=== PATIENT | female | born 1950 | race Caucasian/White ===

== ENCOUNTER 2016-12-24 15:35 | Emergency (ER) | payer OTHER ==
[2016-12-24 15:50] VITALS: TEMP 97.9
--- NOTE | 2016-12-24 16:36 | CPEKG ---
Heart Rate: 87 RR Interval: 690 P-R Interval: 176 QRSD Interval: 90 QT Interval: 376 QTC Interval: 453 P [place]: 46 QRS [place]: -6 T Wave [place]: 41 EKG Severity - NORMAL ECG - EKG Impression: SINUS RHYTHM Electronically Signed By: Josh Philip 24-Dec-2016 22:45:09
[2016-12-24] MEDS ORDERED: NS 1,000 ML IV ONE ×2 (16:44→16:46)
--- NOTE | 2016-12-24 16:46 | EDPHY ---
H & P Stated Complaint: Had episode of vertigo/nausea this morning;resolved now;feels weird HPI/ROS: HPI CHIEF COMPLAINT: Confusion, cognitive fog, lightheadedness HISTORY OF PRESENT ILLNESS: the patient very pleasant 66-year-old female she denies having any significant medical history does not take any daily medications, she presents emergency room stating since 10:00 a.m. she has been in a cognitive fog, states she had some confusion earlier and felt very lightheaded if she was going to pass out. She denies headache, neck pain, chest pain, shortness of breath. Denies dizziness, denies numbness or tingling or focal weakness anywhere. She tells me around 10:00 a.m. she started feeling very lightheaded and feeling as if she was going to pass out she states she was somewhat confused. All her symptoms have since resolved. She has been resting comfortably here in the emergency room at this time she has no complaints. Past Medical History: Denies any medical history Past Surgical History: denies recent surgical history Social History: denies daily use of drugs alcohol tobacco products Family History: noncontributory ROS REVIEW OF SYSTEMS: A comprehensive 10 point review of systems is otherwise negative aside from elements mentioned in the history of present illness. Exam Constitutional appears well nontoxic, triage nursing summary reviewed, vital signs reviewed, awake/alert. Eyes normal conjunctivae and sclera, EOMI, PERRLA. HENT normal inspection, atraumatic, moist mucus membranes, no epistaxis, neck supple/ no meningismus, no raccoon eyes. Respiratory clear to auscultation bilaterally, normal breath sounds, no respiratory distress, no wheezing. Cardiovascular rate normal, regular rhythm, no murmur, no edema, distal pulses normal. Gastrointestinal soft, non-tender, no rebound, no guarding, normal bowel sounds, no distension, no pulsatile mass. Genitourinary no CVA tenderness. Musculoskeletal no midline vertebral tenderness, full range of motion, no calf swelling, no tenderness of extremities, no meningismus, good pulses, neurovascularly intact. Skin pink, warm, & dry, no rash, skin atraumatic. Neurologic normal neurological exam. awake, alert and oriented x 3, AAOx3, moves all 4 extremities equally, motor intact, sensory intact, CN II-XII intact , normal cerebellar, normal vision, normal speech. Psychiatric normal mood/affect. Heme/Lymph/Immune no lymphadenopathy. 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 Re-evaluation: EKG interpretation by me on record in [employer] system. Impression Time of EKG 1634: sinus rhythm rate of 87, appears to be subtle ST depression lead V2 V3 V4 V5, otherwise no ST elevation. EKG interpretation by me on record in [employer] system. Impression Time of EKG 1707, sinus rhythm rate of 81. do not appreciate acute ischemic change. Very subtle ST depression V4 V5 V6. Otherwise unremarkable EKG. CT scan of the Head without IV contrast The results of the study are negative for acute intracranial abnormality. The study was read by Dr. Corley I viewed the images myself on the PACS system. EKG interpretation by me on record in [employer] system. Impression This is a repeat EKG repeat EKG time 6:25 p.m., sinus rhythm rate of 74, there is no acute ischemic changes specifically no ST elevation, ST depression or significant T-wave abnormalities. Unremarkable EKG. 1859: Patient has been resting comfortably here in the emergency room in no acute distress she has not had any vomiting fever she denies chest pain or shortness of breath. Denies headache. She tells me she feels fine. Her workup for confusion, lightheadedness has been unremarkable. She has 2- troponins a electrolytes are appropriate blood work that is appropriate she does have a rather very small urinary tract infection which she received 1 g of Rocephin here in the emergency room. Urine culture sent. Keflex for home. She feels well. Vital signs are stable. She does understand return emergency room if she develops any worsening symptoms includes dizziness, chest pain, shortness of breath, abdominal pain or vomiting or any questions or concerns. She feels comfortable going home. 190: Patient is resting comfortably she feels well. She would like to go home. I did give her strict return precautions. Source: Patient - Personal History Current Tetanus Diphtheria and Acellular Pertussis (TDAP): Unsure - Medical/Surgical History Other PMH: healthy per pt - Social History Smoking Status: Never smoked Constitutional: Initial Vital Signs Temperature (C) 36.6 C 12/24/16 15:40 Heart Rate 95 12/24/16 15:40 Respiratory Rate 18 12/24/16 15:40 Blood Pressure 134/78 H 12/24/16 15:40 O2 Sat (%) 97 12/24/16 15:40 O2 Delivery Mode Room Air Allergies/Adverse Reactions: codeine Allergy (Mild, Verified 12/24/16 15:46) itch Home Medications: Medication Instructions Recorded Cephalexin [Keflex] 500 mg PO Q6H #28 cap 12/24/16 Medical Decision Making - Diagnostics Imaging Results: Imaging Impressions Chest X-Ray 12/24/16 16:46 Impression: Minimal atelectasis, left lower lobe. Otherwise negative. Head CT 12/24/16 17:01 Impression: There is no acute abnormality identified on this unenhanced CT evaluation. If there is further clinical concern regarding the patient's symptoms, MR imaging is suggested, if not otherwise contraindicated. Findings were discussed with Josh Philip MD at 17:32, on 12/24/2016. - Data Points Laboratory Results: Laboratory Results 12/24/16 16:26 12/24/16 16:26 12/24/16 12/24/16 12/24/16 18:29 16:51 16:26 WBC RBC Hgb Hct MCV MCH MCHC RDW Plt Count MPV Neut % (Auto) Lymph % (Auto) [place] % (Auto) Eos % (Auto) Baso % (Auto) Nucleat RBC Rel Count Absolute Neuts (auto) Absolute Lymphs (auto) Absolute Monos (auto) Absolute Eos (auto) Absolute Basos (auto) Absolute Nucleated RBC Immature Gran % Immature Gran # PT 12.7 SEC SEC (12.0-15.0) INR 0.96 (0.83-1.16) APTT 27.7 SEC SEC (23.0-38.0) D-Dimer 0.40 ug/mLFEU ug/mLFEU (0.00-0.50) Sodium Potassium Chloride Carbon Dioxide Anion Gap BUN Creatinine Estimated GFR Glucose Calcium Magnesium Total Bilirubin Conjugated Bilirubin Unconjugated Bilirubin AST ALT Alkaline Phosphatase Creatine Kinase CK-MB (CK-2) Fraction CK-MB (CK-2) % Creatine Kinase Interp Troponin I < 0.012 ng/mL ng/mL (0-0.034) NT-Pro-B Natriuret Pep Total Protein Albumin Lipase Specimen Hemolysis Urine Color YELLOW Urine Appearance CLEAR Urine pH 5.0 (5.0-7.5) Ur Specific [place] 1.010 (1.002-1.030) Urine Protein NEGATIVE (NEGATIVE) Urine Ketones NEGATIVE (NEGATIVE) Urine Blood NEGATIVE (NEGATIVE) Urine Nitrate NEGATIVE (NEGATIVE) Urine Bilirubin NEGATIVE (NEGATIVE) Urine Urobilinogen NEGATIVE EU EU (0.2-1.0) Ur Leukocyte Esterase 2+ H (NEGATIVE) Urine RBC 3-5 /hpf H /hpf (0-3) Urine WBC 5-10 /hpf H /hpf (0-3) Ur Epithelial Cells TRACE /lpf /lpf (NONE-1+) Urine Bacteria TRACE /hpf H /hpf (NONE SEEN) Urine Mucus 1+ /lpf /lpf (NONE-1+) Urine Glucose NEGATIVE (NEGATIVE) 12/24/16 12/24/16 16:26 16:26 WBC 8.05 10^3/uL 10^3/uL (3.80-9.50) RBC 4.39 10^6/uL 10^6/uL (4.18-5.33) Hgb 13.3 g/dL g/dL (12.6-16.3) Hct 39.1 % % (38.0-47.0) MCV 89.1 fL fL (81.5-99.8) MCH 30.3 pg pg (27.9-34.1) MCHC 34.0 g/dL g/dL (32.4-36.7) RDW 13.0 % % (11.5-15.2) Plt Count 335 10^3/uL 10^3/uL (150-400) MPV 10.8 fL fL (8.7-11.7) Neut % (Auto) 62.7 % % (39.3-74.2) Lymph % (Auto) 30.9 % % (15.0-45.0) [place] % (Auto) 5.3 % % (4.5-13.0) Eos % (Auto) 0.4 % L % (0.6-7.6) Baso % (Auto) 0.5 % % (0.3-1.7) Nucleat RBC Rel Count 0.0 % % (0.0-0.2) Absolute Neuts (auto) 5.04 10^3/uL 10^3/uL (1.70-6.50) Absolute Lymphs (auto) 2.49 10^3/uL 10^3/uL (1.00-3.00) Absolute Monos (auto) 0.43 10^3/uL 10^3/uL (0.30-0.80) Absolute Eos (auto) 0.03 10^3/uL 10^3/uL (0.03-0.40) Absolute Basos (auto) 0.04 10^3/uL 10^3/uL (0.02-0.10) Absolute Nucleated RBC 0.00 10^3/uL 10^3/uL (0-0.01) Immature Gran % 0.2 % % (0.0-1.1) Immature Gran # 0.02 10^3/uL 10^3/uL (0.00-0.10) PT INR APTT D-Dimer Sodium 141 mEq/L mEq/L (134-144) Potassium 5.1 mEq/L mEq/L (3.5-5.2) Chloride 106 mEq/L mEq/L (97-110) Carbon Dioxide 22 mEq/l mEq/l (22-31) Anion Gap 13 mEq/L mEq/L (8-16) BUN 19 mg/dL mg/dL (7-23) Creatinine 1.0 mg/dL mg/dL (0.6-1.0) Estimated GFR 56 Glucose 95 mg/dL mg/dL (70-100) Calcium 9.6 mg/dL mg/dL (8.5-10.4) Magnesium 2.2 mg/dL mg/dL (1.6-2.3) Total Bilirubin 0.8 mg/dL mg/dL (0.1-1.4) Conjugated Bilirubin 0.5 mg/dL mg/dL (0.0-0.5) Unconjugated Bilirubin 0.3 mg/dL mg/dL (0.0-1.1) AST 34 IU/L IU/L (14-46) ALT 30 IU/L IU/L (9-52) Alkaline Phosphatase 81 IU/L IU/L (38-126) Creatine Kinase 166 IU/L H IU/L (0-156) CK-MB (CK-2) Fraction 1.21 ng/mL ng/mL (0-3.19) CK-MB (CK-2) % 0.7 % % (0.0-4.0) Creatine Kinase Interp NEGATIVE (NEGATIVE) Troponin I 0.013 ng/mL ng/mL (0-0.034) NT-Pro-B Natriuret Pep 115 pg/mL pg/mL (0-125) Total Protein 7.1 g/dL g/dL (6.3-8.2) Albumin 4.4 g/dL g/dL (3.5-5.0) Lipase 107.0 IU/L IU/L (23-300) Specimen Hemolysis 140 Urine Color Urine Appearance Urine pH Ur Specific [place] Urine Protein Urine Ketones Urine Blood Urine Nitrate Urine Bilirubin Urine Urobilinogen Ur Leukocyte Esterase Urine RBC Urine WBC Ur Epithelial Cells Urine Bacteria Urine Mucus Urine Glucose Medications Given: Discontinued Medications Sodium Chloride (Ns) 1,000 mls @ 0 mls/hr IV ONCE ONE PRN Reason: Wide Open Stop: 12/24/16 16:45 Last Admin: 12/24/16 16:57 Dose: 1,000 mls Sodium Chloride (Ns) 1,000 mls @ 0 mls/hr IV ONCE ONE; Wide Open PRN Reason: Protocol Stop: 12/24/16 16:47 Last Admin: 12/24/16 17:20 Dose: 1,000 mls Ceftriaxone Sodium/Dextrose (Rocephin 1 Gm (Premix)) 50 mls @ 100 mls/hr IV EDNOW ONE PRN Reason: Protocol Stop: 12/24/16 17:54 Last Admin: 12/24/16 17:34 Dose: 50 mls Departure - Departure Disposition: Home, Routine, Self-Care Clinical Impression: UTI (urinary tract infection) Qualifiers: Urinary tract infection type: acute cystitis Hematuria presence: with hematuria Qualified Code(s): N30.01 - Acute cystitis with hematuria Condition: Good Instructions: Urinary Tract Infection in Women (ED) Additional Instructions: 1.Stay well-hydrated drink lots of fluids. 2. Return emergency room if you have any worsening symptoms includes generalized weakness, fever, vomiting or you do not feel well. Referrals: MAYRA TOMPKINS [Primary Care Provider] - As per Instructions Prescriptions: Cephalexin [Keflex] 500 mg PO Q6H #28 cap
[2016-12-24 16:52] LABS: % IMMATURE GRANULYOCYTES 0.2 % (0.0-1.1); ABSOLUTE IMMATURE GRANULOCYTES 0.02 10^3/uL (0.00-0.10); ADD DIFF? NO; ADD MORPH? NO; ADD SCAN? NO; ATYPICAL LYMPHOCYTE FLAG 10 (0-99); FRAGMENT RBC FLAG 0 (0-99); HEMATOCRIT 39.1 % (38.0-47.0); HEMOGLOBIN 13.3 g/dL (12.6-16.3); LEFT SHIFT FLG 0 (0-99); LIPEMIA HEMOLYSIS FLAG 90 (0-99); MEAN CELL HEMOGLOBIN 30.3 pg (27.9-34.1); MEAN CELL VOLUME 89.1 fL (81.5-99.8); MEAN PLATELET VOLUME 10.8 fL (8.7-11.7); PLATELET CLUMPS FLAG 0 (0-99); PLATELET COUNT 335 10^3/uL (150-400); RED BLOOD CELL COUNT 4.39 10^6/uL (4.18-5.33)
[2016-12-24 17:01] LABS: COLOR YELLOW; LEUKOCYTE ESTERASE,URINE 2+ (NEGATIVE); NITRITE,URINE NEGATIVE (NEGATIVE)
[2016-12-24 17:02] LABS: ALANINE AMINOTRANSFERASE 30 IU/L (9-52); ALBUMIN 4.4 g/dL (3.5-5.0); ALKALINE PHOSPHATASE 81 IU/L (38-126); ANION GAP 13 mEq/L (8-16); ASPARTATE AMINOTRANSFERASE 34 IU/L (14-46); BILIRUBIN,TOTAL 0.8 mg/dL (0.1-1.4); BILIRUBIN-CONJUGATED 0.5 mg/dL (0.0-0.5); BILIRUBIN-UNCONJUGATED 0.3 mg/dL (0.0-1.1); CALCIUM 9.6 mg/dL (8.5-10.4); CARBON DIOXIDE 22 mEq/l (22-31); CHLORIDE 106 mEq/L (97-110); GLOMERULAR FILTRATION RATE 56; GLUCOSE 95 mg/dL (70-100); MAGNESIUM 2.2 mg/dL (1.6-2.3); POTASSIUM 5.1 mEq/L (3.5-5.2); SODIUM 141 mEq/L (134-144); SPECIMEN HEMOLYSIS 140; TOTAL PROTEIN 7.1 g/dL (6.3-8.2)
[2016-12-24 17:05] LABS: BACTERIA TRACE /hpf (NONE SEEN); MUCUS 1+ /lpf (NONE-1+)
[2016-12-24 17:05] LABS: APTT 27.7 SEC (23.0-38.0)
[2016-12-24 17:09] LABS: INR 0.96 (0.83-1.16); PROTIME(PATIENT) 12.7 SEC (12.0-15.0)
--- NOTE | 2016-12-24 17:10 | CPEKG ---
Heart Rate: 81 RR Interval: 741 P-R Interval: 180 QRSD Interval: 90 QT Interval: 372 QTC Interval: 432 P [place]: 47 QRS [place]: -1 T Wave [place]: 41 EKG Severity - NORMAL ECG - EKG Impression: SINUS RHYTHM Electronically Signed By: Josh Philip 24-Dec-2016 22:45:09
[2016-12-24 17:14] LABS: CK-MB INTERPRETATION NEGATIVE (NEGATIVE); CREATINE KINASE-MB FRACTION 1.21 ng/mL (0-3.19); TROPONIN I 0.013 ng/mL (0-0.034)
--- NOTE | 2016-12-24 18:27 | CPEKG ---
Heart Rate: 74 RR Interval: 811 P-R Interval: 172 QRSD Interval: 88 QT Interval: 392 QTC Interval: 435 P [place]: 44 QRS [place]: -1 T Wave [place]: 19 EKG Severity - NORMAL ECG - EKG Impression: SINUS RHYTHM Electronically Signed By: Josh Philip 24-Dec-2016 22:45:09
[2016-12-24 18:48] VITALS: O2SAT 96
[2016-12-24 19:28] VITALS: BP 143/82; PULSE 71; RESP 20
== END 2016-12-24 19:28 | disposition home or self-care (01) ==
DX: N30.01 Acute cystitis with hematuria (principal); E86.9 Volume depletion, unspecified; B96.89 Other specified bacterial agents as the cause of diseases classified elsewhere
CPT/HCPCS: 96365; J0696